=== PATIENT | male | born 1960 ===

== ENCOUNTER 2016-10-10 10:27 | Emergency (ER) | payer OTHER ==
[2016-10-10 10:39] VITALS: TEMP 98; O2SAT 97; BMI 37.7
--- NOTE | 2016-10-10 11:22 | ED PDOC ---
HPI: General Adult Time Seen by Provider: 10/10/16 10:41 Chief Complaint (Nursing): Weakness/Neurological Deficit Chief Complaint (Provider): Left upper arm numbness History Per: Patient History/Exam Limitations: no limitations Onset/Duration Of Symptoms: Days (x1) Current Symptoms Are (Timing): Still Present Severity: Mild Additional Complaint(s): Patient is a 56 year old male presenting to the ED complaining of numbness and tingling to the left upper arm and left shoulder since yesterday. Patient also complains of radiating numbness and tingling to the left side of his chest. Denies chest pain, shortness of breath, dizziness, headache, leg swelling, slurred speech, or pain. PMD: Dr. Zaragoza Past Medical History Reviewed: Historical Data, Nursing Documentation, Vital Signs Vital Signs: Last Vital Signs Temp 98 F 10/10/16 10:39 Pulse 68 10/10/16 13:00 Resp 14 10/10/16 13:00 BP 123/71 10/10/16 13:00 Pulse Ox 97 10/10/16 13:00 - Medical History PMH: Asthma, COPD Denies: Chronic Kidney Disease - Family History Family History: States: No Known Family Hx - Home Medications Home Medications: Ambulatory Orders Medication Instructions Recorded Primidone [Mysoline] 25 mg PO DAILY 07/12/16 Oseltamivir [Tamiflu] 75 mg PO BID #10 cap 08/02/16 Promethazine/Codeine 5 ml PO Q8 #60 ml 08/02/16 [Codeine/Promethazine 10 MG/5 Ml-6.25 MG/5 Ml] - Allergies Allergies/Adverse Reactions: Allergies Allergy/AdvReac Type Severity Reaction Status Date / Time aspirin Allergy DIARRHEA Verified 07/12/16 06:38 seafood Allergy ANAPHYLAXIS Uncoded 07/13/16 10:01 Review of Systems ROS Statement: Except As Marked, All Systems Reviewed And Found Negative Cardiovascular: Positive for: Other (left chest numbness and tingling). Negative for: Chest Pain Respiratory: Negative for: Shortness of Breath Musculoskeletal: Positive for: Shoulder Pain (left shoulder numbness and tingling), Other (left arm numbness and tingling). Negative for: Leg Pain Neurological: Negative for: Headache, Dizziness Physical Exam - Reviewed Nursing Documentation Reviewed: Yes Vital Signs Reviewed: Yes - Physical Exam Appears: Positive for: Well, Non-toxic, No Acute Distress Head Exam: Positive for: ATRAUMATIC, NORMAL INSPECTION, NORMOCEPHALIC Skin: Positive for: Normal Color, Warm, DRY Eye Exam: Positive for: EOMI, Normal appearance, PERRL Cardiovascular/Chest: Positive for: Regular Rate, Rhythm. Negative for: Gallop , Murmur Respiratory: Positive for: Normal Breath Sounds. Negative for: Accessory Muscle Use, Rhonchi, Respiratory Distress Pulses-Carotid (L): 2+ Extremity: Positive for: Normal ROM, Other (sensation intact) Neurologic/Psych: Positive for: Alert, Oriented - Laboratory Results Result Diagrams: 10/10/16 11:15 10/10/16 11:15 - ECG ECG: Positive for: Interpreted By Me, Viewed By Me ECG Rhythm: Positive for: Normal QRS, Normal ST Segment, Sinus Rhythm. Negative for: ST/T Changes Rate: 67 O2 Sat by Pulse Oximetry: 97 (RA) Pulse Ox Interpretation: Normal - CT Scan/US CT head Other Rad Studies (CT/US): Read By Radiologist, Radiology Report Reviewed Other Rad Interpretation: no acute findings Medical Decision Making Medical Decision Making: Time: Impression: I- Left arm paresthesia & left chest paresthesia DDx: Atypical Acute Coronary Syndrome v ACS Plan: CT Head EKG BMP Troponin CBC Scribe Attestation: Documented by Rehana Goodrich acting as a scribe for Teresa Medina MD. Scribe Attestation: All medical record entries made by the Scribe were at my direction and personally dictated by me. I have reviewed the chart and agree that the record accurately reflects my personal performance of the history, physical exam, medical decision making, and the department course for this patient. I have also personally directed, reviewed, and agree with the discharge instructions and disposition. Disposition - Clinical Impression Clinical Impression: Arm paresthesia, left - Patient ED Disposition Is Patient to be Admitted: No Doctor Will See Patient In The: Office Counseled Patient/Family Regarding: Studies Performed, Diagnosis, Need For Followup - Disposition Referrals: Siddhartha Zaraogza MD [Staff Provider] - Disposition: Routine/Home Disposition Time: 13:52 Condition: GOOD Additional Instructions: Follow up with your PCP in 2-3 days. Return for worsening. Instructions: Paresthesia (ED)
[2016-10-10 11:30] LABS: BASO # 0.1 K/uL (0.0-0.2); EOS # 0.2 K/uL (0.0-0.7); EOS % 3.4 % (0.0-4.0); HEMATOCRIT 38.8 % (35.0-51.0); LYMPH # 2.2 K/uL (1.0-4.3); LYMPH % 32.8 % (20.0-40.0); MEAN CELL VOLUME 76.6 fl (80.0-94.0); MEAN CORPUSCULAR HEMOGLOBIN 24.8 pg (27.0-31.0); MEAN CORPUSCULAR HGB CONC 32.4 g/dL (33.0-37.0); MEAN PLATELET VOLUME 7.2 fl (7.2-11.7); MONO # 0.6 K/uL (0.0-0.8); MONO % 8.4 % (0.0-10.0); NEUT # 3.6 K/uL (1.8-7.0); NEUT % 54.4 % (50.0-75.0); RED CELL DISTRIBUTION WIDTH 16.5 % (11.5-14.5); WHITE BLOOD COUNT 6.6 K/uL (4.8-10.8)
[2016-10-10 11:48] LABS: BLOOD UREA NITROGEN 20 mg/dl (9-20); CALCIUM 9.5 mg/dL (8.4-10.2); CARBON DIOXIDE 27 mmol/L (22-30); CHLORIDE 106 mmol/L (98-107); GFR AFRICAN-AMERICAN > 60; GLUCOSE,RANDOM 90 mg/dL (75-110); POTASSIUM 4.5 MMOL/L (3.6-5.0); SODIUM 145 mmol/l (132-148)
--- NOTE | 2016-10-10 11:49 | CT ---
PROCEDURE: CT HEAD WITHOUT CONTRAST. HISTORY: left arm numbness COMPARISON: Brain MRI without IV contrast performed 06/28/16 TECHNIQUE: Axial computed tomography images were obtained through the head/brain without intravenous contrast. Radiation dose: Total exam DLP = 892.21 mGy-cm. FINDINGS: HEMORRHAGE: No intracranial hemorrhage. BRAIN: No mass effect or edema. The yi-white matter differentiation appears intact. VENTRICLES: No hydrocephalus. CALVARIUM: Unremarkable. PARANASAL SINUSES: Mild mucosal thickening of the right maxillary sinus with small fluid. The remainder the visualized paranasal sinuses appear clear. MASTOID AIR CELLS: Unremarkable as visualized. No inflammatory changes. OTHER FINDINGS: None. IMPRESSION: No acute intracranial pathology identified. Please note that MRI with diffusion imaging is more sensitive in the detection of acute ischemic event. Mild mucosal thickening of the right maxillary sinus with small fluid. Correlate clinically for sinusitis.
[2016-10-10 13:01] VITALS: BP 123/71; RESP 14
[2016-10-10 13:51] VITALS: PULSE 67
--- NOTE | 2016-10-11 07:47 | CARD ---
APPROVED REPORT EKG Measurement Heart [id number] <Conclusion> Normal sinus rhythm Left anterior fascicular block Abnormal ECG
== END 2016-10-10 14:12 | disposition home or self-care (01) ==
LOC: H.ER 10:27
DX: R20.0 Anesthesia of skin (principal); J45.909 Unspecified asthma, uncomplicated; J44.9 Chronic obstructive pulmonary disease, unspecified

== ENCOUNTER 2017-05-04 08:49 | Emergency (ER) | payer OTHER ==
[2017-05-04 08:54] VITALS: BP 132/90; PULSE 66; RESP 20; TEMP 98.4; O2SAT 99
[2017-05-04 08:55] VITALS: BMI 36.6
[2017-05-04] MEDS ORDERED: Emtricitabine-Tenofovir 200 mg-300 mg Tab PO STA (10:19)
--- NOTE | 2017-05-04 10:24 | ED PDOC ---
HPI: Wound Care - HPI Time Seen by Provider: 05/04/17 09:01 Chief Complaint (Nursing): Needle Stick Chief Complaint (Provider): Prick to Fourth Digit on Right Hand History Per: Patient Exam Limitations: no limitations Current Symptoms Are (Timing): Still Present Additional Complaint(s): Gen Mustafa is a 56 year old male presenting to the ED for an evaluation after being struck by a prick to his fourth digit on his right hand occurring prior to arrival. 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 The patient reports a little bit of bleeding to the tip of his finger, but denies seeing any sharp objects or needles. He reports attempting to squeeze out as much blood as possible upon seeing the injury. The patient denies any pain, discomfort, redness, allergies, or any other medical problems. PMD: Siddhartha Zaragoza MD Past Medical History Reviewed: Historical Data, Nursing Documentation, Vital Signs Vital Signs: Last Vital Signs Temp 98.4 F 05/04/17 08:54 Pulse 66 05/04/17 08:54 Resp 20 05/04/17 08:54 BP 132/90 05/04/17 08:54 Pulse Ox 99 05/04/17 08:54 - Medical History PMH: Asthma, COPD Denies: Chronic Kidney Disease - Family History Family History: States: Unknown Family Hx - Social History Current smoker - smoking cessation education provided: Yes (cigars) Alcohol: Other Drugs: Denies - Home Medications Home Medications: Ambulatory Orders Medication Instructions Recorded Primidone [Mysoline] 25 mg PO DAILY 07/12/16 Oseltamivir [Tamiflu] 75 mg PO BID #10 cap 08/02/16 Promethazine/Codeine 5 ml PO Q8 #60 ml 08/02/16 [Codeine/Promethazine 10 MG/5 Ml-6.25 MG/5 Ml] Dolutegravir Sodium [Tivicay] 1 tab PO DAILY #4 tab 05/04/17 Emtricitabine/Tenofovir (Tdf) 1 each PO DAILY #4 tablet 05/04/17 [Truvada 100 mg-150 mg Tablet] - Allergies Allergies/Adverse Reactions: Allergies Allergy/AdvReac Type Severity Reaction Status Date / Time aspirin Allergy DIARRHEA Verified 05/04/17 09:06 seafood Allergy ANAPHYLAXIS Uncoded 07/13/16 10:01 Review of Systems ROS Statement: Except As Marked, All Systems Reviewed And Found Negative Musculoskeletal: Positive for: Other (prick to right fourth digit ). Negative for: Hand Pain (no right hand pain or discomfort) Physical Exam - Reviewed Nursing Documentation Reviewed: Yes Vital Signs Reviewed: Yes - Physical Exam Appears: Positive for: Non-toxic, No Acute Distress Head Exam: Positive for: ATRAUMATIC, NORMOCEPHALIC Eye Exam: Positive for: EOMI Neck: Positive for: Normal, Supple Cardiovascular/Chest: Positive for: Regular Rate, Rhythm Respiratory: Negative for: Respiratory Distress Extremity: Positive for: Other (superficial cut to tip of distal tip on 4th finger of right hand with a small collection of blood underneath skin) Neurologic/Psych: Positive for: Alert, Oriented (x3) - ECG O2 Sat by Pulse Oximetry: 99 (RA) Pulse Ox Interpretation: Normal Medical Decision Making Medical Decision Making: Time: 09:01 Impression: Prick to 4th digit on right hand Plan: * Tivicay 50 mg PO * Truvada 200 mg-300 mg 1 tab PO * Reevaluation Spoke to Dr. Ann. Reviewed situation and recommends testing as per protocol for post exposure for prophylaxis and start on medication for prophylaxis. Scribe Attestation: Documented by Layne Oconnor, acting as a scribe for Zuleika Looney MD. Provider Scribe Attestation: All medical record entries made by the Scribe were at my direction and personally dictated by me. I have reviewed the chart and agree that the record accurately reflects my personal performance of the history, physical exam, medical decision making, and the department course for this patient. I have also personally directed, reviewed, and agree with the discharge instructions and disposition. Disposition - Clinical Impression Clinical Impression: Needle exposure - Patient ED Disposition Is Patient to be Admitted: No Doctor Will See Patient In The: Office Counseled Patient/Family Regarding: Diagnosis, Need For Followup, Rx Given - Disposition Disposition: Routine/Home Disposition Time: 11:25 Condition: STABLE Additional Instructions: Followup with Employee [facility] Prescriptions: Dolutegravir Sodium [Tivicay] 1 tab PO DAILY #4 tab Emtricitabine/Tenofovir (Tdf) [Truvada 100 mg-150 mg Tablet] 1 each PO DAILY #4 tablet Instructions: Needle Stick Injuries (ED) Forms: [employer] (H[place] Konger) - POA Present On Arrival: Falls Or Trauma
[2017-05-05] MEDS ORDERED: Emtricitabine-Tenofovir 200 mg-300 mg Tab PO SCH (09:00)
== END 2017-05-04 11:33 | disposition home or self-care (01) ==
LOC: H.ER 08:49
DX: T14.8XXA Other injury of unspecified body region, initial encounter (principal); W46.1XXA Contact with contaminated hypodermic needle, initial encounter; Y92.238 Other place in hospital as the place of occurrence of the external cause

== ENCOUNTER 2017-08-23 09:25 | Emergency (ER) | payer OTHER ==
[2017-08-23 09:30] VITALS: BP 135/76; PULSE 73; TEMP 97
[2017-08-23 09:31] VITALS: BMI 37.3
[2017-08-23 10:01] VITALS: RESP 18; O2SAT 98
--- NOTE | 2017-08-23 11:07 | ED PDOC ---
Lower Extremity Pain/Injury Chief Complaint (Nursing): Lower Extremity Problem/Injury Chief Complaint (Provider): Lower extremity problem History Per: Patient History/Exam Limitations: no limitations Onset/Duration Of Symptoms: Days (x5 years), Worse Since (yesterday) Current Symptoms Are (Timing): Still Present Additional Complaint(s): Gen Mustafa is a 57 year old male, with a past medical history of asthma and DVT in right leg, who presents to the emergency department complaining of b/l ankle pain, chronic for x5 years but worst since yesterday. Patient reports the left ankle pain is worst than the right. On the left ankle patient points to the achilles area, and on the right ankle to the lateral posterior malleolus. Patient has trouble walking and describes the pain as aching with swelling. He denies any other medical complaints. PMD: Siddhartha Zaragoza I Of note: He is currently seeing a neurologist for right hand tremors. Past Medical History Reviewed: Historical Data, Nursing Documentation, Vital Signs Vital Signs: Last Vital Signs Temp 97 F L 08/23/17 09:59 Pulse 73 08/23/17 09:59 Resp 18 08/23/17 09:59 BP 135/76 08/23/17 09:59 Pulse Ox 98 08/23/17 09:59 - Medical History PMH: Asthma, COPD, Deep Vein Thrombosis (right leg) Denies: Chronic Kidney Disease - Surgical History Surgical History: No Surg Hx - Family History Family History: States: Unknown Family Hx - Social History Current smoker - smoking cessation education provided: Yes (Cigar) Alcohol: Social Drugs: Denies - Home Medications Home Medications: Ambulatory Orders Medication Instructions Recorded Primidone [Mysoline] 25 mg PO DAILY 07/12/16 Oseltamivir [Tamiflu] 75 mg PO BID #10 cap 08/02/16 Promethazine/Codeine 5 ml PO Q8 #60 ml 08/02/16 [Codeine/Promethazine 10 MG/5 Ml-6.25 MG/5 Ml] Dolutegravir Sodium [Tivicay] 1 tab PO DAILY #4 tab 05/04/17 Emtricitabine/Tenofovir (Tdf) 1 each PO DAILY #4 tablet 05/04/17 [Truvada 100 mg-150 mg Tablet] Acetaminophen [Tylenol 325mg tab] 650 mg PO Q4 #60 tab 08/23/17 Cyclobenzaprine [Cyclobenzaprine 10 mg PO Q8 #20 tab 08/23/17 HCl] - Allergies Allergies/Adverse Reactions: Allergies Allergy/AdvReac Type Severity Reaction Status Date / Time aspirin Allergy DIARRHEA Verified 05/04/17 09:06 seafood Allergy ANAPHYLAXIS Uncoded 07/13/16 10:01 Review of Systems ROS Statement: Except As Marked, All Systems Reviewed And Found Negative Musculoskeletal: Positive for: Foot Pain (b/l ankle pain w/ swelling) Physical Exam - Reviewed Nursing Documentation Reviewed: Yes Vital Signs Reviewed: Yes - Physical Exam Appears: Positive for: Non-toxic Head Exam: Positive for: ATRAUMATIC, NORMAL INSPECTION, NORMOCEPHALIC Skin: Positive for: Normal Color, Warm, Dry Eye Exam: Positive for: Normal appearance, EOMI, PERRL Neck: Positive for: Painless ROM, Supple Cardiovascular/Chest: Positive for: Regular Rate, Rhythm. Negative for: Murmur Respiratory: Positive for: Normal Breath Sounds. Negative for: Respiratory Distress Gastrointestinal/Abdominal: Positive for: Normal Exam, Soft. Negative for: Tenderness, Guarding, Rebound Extremity: Positive for: Normal ROM (b/l ankles. Full strength ), Tenderness ( left ankle achilles. Right ankle lateral posterior malleolus. ). Negative for: Deformity Neurologic/Psych: Positive for: Alert, Oriented - ECG O2 Sat by Pulse Oximetry: 98 (RA) Pulse Ox Interpretation: Normal Medical Decision Making Medical Decision Making: Initial Impression: Tendonitis, arthritis. Rule out DVT. Initial Plan: --Flexeril 10 mg PO --Tylenol 325mg tab 975 mg PO --Duplex Lower Extrem Vein Bilat [US] --reevaluation --Ultrasound was negative. Pt will be discharged home. Pt states motrin makes him have reflux, will prescribe Tylenol and Flexeril. 12:27 --Upon provider evaluation patient is medically stable, and requires no further treatment in the ED at this time. Patient will be discharged home. Counseling was provided and all questions were answered regarding diagnosis and need for follow up. There is agreement to discharge plan. Return if symptoms persist or worsen. Scribe Attestation: Documented by Gen Ward, acting as a scribe for Tawanda Harvey MD Provider Scribe Attestation: All medical record entries made by the Scribe were at my direction and personally dictated by me. I have reviewed the chart and agree that the record accurately reflects my personal performance of the history, physical exam, medical decision making, and the department course for this patient. I have also personally directed, reviewed, and agree with the discharge instructions and disposition. Disposition - Clinical Impression Clinical Impression: Achilles tendinitis, Arthritis - Patient ED Disposition Is Patient to be Admitted: No - Disposition Referrals: Siddhartha Zaragoza MD [Staff Provider] - Disposition: Routine/Home Disposition Time: 12:27 Condition: IMPROVED Additional Instructions: Mr Mustafa, thank you for letting us take care of you today. Your provider was Dr. Harvey. You were treated for Achilles Tendonitis, Arthritis. The emergency medical care you received today was directed at your acute symptoms. If you were prescribed any medication, please fill it and take as directed. It may take several days for your symptoms to resolve. Return to the Emergency Department if your symptoms worsen, do not improve, or if you have any other problems. Please contact your doctor or call one of the physicians/clinics you have been referred to that are listed on the Patient Visit Information form that is included in your discharge packet. Bring any paperwork you were given at discharge with you along with any medications you are taking to your follow up visit. Our treatment cannot replace ongoing medical care by a primary care provider (PCP) outside of the emergency department. Thank you for allowing the [email or web address] team to be part of your care today. If you had an X-Ray or CT scan: A Radiologist will review the ED reading if any change in treatment is needed we will contact you. If you had a blood, urine, or wound culture: It will take several days for the results, if any change in treatment is needed we will contact you. If you had an STI test: It will take 48 hours for the results. Please call after 1 week if you have not heard back. Prescriptions: Acetaminophen [Tylenol 325mg tab] 650 mg PO Q4 #60 tab Cyclobenzaprine [Cyclobenzaprine HCl] 10 mg PO Q8 #20 tab Instructions: Achilles Tendinitis (ED) Forms: [facility] [facility] ([place]ayan), [facility] ED School/Work Excuse
--- NOTE | 2017-08-23 13:23 | US ---
PROCEDURE: Bilateral lower extremity venous duplex Doppler. HISTORY: b/l ankle pain/swelling r/o dvt COMPARISON: None available. TECHNIQUE: Bilateral common femoral, superficial femoral, popliteal and posterior tibial veins were evaluated. Flow was assessed with color Doppler, compressibility, assessment of phasic flow and augmentation response. FINDINGS: COMMON FEMORAL VEIN: Right CFV: Unremarkable. Left CFV: Duplicated vein. Unremarkable. SUPERFICIAL FEMORAL VEIN: Right SFV: Unremarkable. Left SFV: Duplicated vein. Unremarkable. POPLITEAL VEIN: Right Popliteal: Unremarkable. Left Popliteal: Unremarkable. POSTERIOR TIBIAL VEIN: Right PTV: Unremarkable. Left PTV: Unremarkable. OTHER FINDINGS: None. IMPRESSION: No evidence of deep venous thrombosis.
== END 2017-08-23 12:58 | disposition home or self-care (01) ==
LOC: H.ER 09:25
DX: M76.62 Achilles tendinitis, left leg (principal); M76.61 Achilles tendinitis, right leg; J44.9 Chronic obstructive pulmonary disease, unspecified; K21.9 Gastro-esophageal reflux disease without esophagitis; Z86.718 Personal history of other venous thrombosis and embolism

== ENCOUNTER 2017-10-18 10:33 | Emergency (ER) | payer OTHER ==
[2017-10-18 10:34] VITALS: BMI 37.3
--- NOTE | 2017-10-18 11:42 | ED PDOC ---
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 C/o pain to the proximal dorsal elbow into the olecranon and c/o pain with extension of arm especially. Denies hand/wrist or shoulder pain. Denies other injury or fall. Past Medical History Reviewed: Historical Data, Nursing Documentation, Vital Signs Vital Signs: Last Vital Signs Temp 97.9 F 10/18/17 11:04 Pulse 69 10/18/17 11:04 Resp 18 10/18/17 11:04 BP 133/79 10/18/17 11:04 Pulse Ox 99 10/18/17 11:04 - Medical History PMH: Asthma, COPD, Deep Vein Thrombosis (right leg) Denies: Chronic Kidney Disease - Family History Family History: States: Unknown Family Hx - Home Medications Home Medications: Ambulatory Orders Medication Instructions Recorded Primidone [Mysoline] 25 mg PO DAILY 07/12/16 Oseltamivir [Tamiflu] 75 mg PO BID #10 cap 08/02/16 Promethazine/Codeine 5 ml PO Q8 #60 ml 08/02/16 [Codeine/Promethazine 10 MG/5 Ml-6.25 MG/5 Ml] Dolutegravir Sodium [Tivicay] 1 tab PO DAILY #4 tab 05/04/17 Emtricitabine/Tenofovir (Tdf) 1 each PO DAILY #4 tablet 05/04/17 [Truvada 100 mg-150 mg Tablet] Acetaminophen [Tylenol 325mg tab] 650 mg PO Q4 #60 tab 08/23/17 Cyclobenzaprine [Cyclobenzaprine 10 mg PO Q8 #20 tab 08/23/17 HCl] oxyCODONE/Acetaminophen [Percocet 1 ea PO Q6 PRN #6 tab 10/18/17 5/325 mg Tab] traMADol [Ultram] 50 mg PO TID PRN #12 tab 10/18/17 - Allergies Allergies/Adverse Reactions: Allergies Allergy/AdvReac Type Severity Reaction Status Date / Time aspirin Allergy DIARRHEA Verified 05/04/17 09:06 seafood Allergy ANAPHYLAXIS Uncoded 07/13/16 10:01 Review of Systems Cardiovascular: Negative for: Chest Pain Gastrointestinal: Negative for: Abdominal Pain Musculoskeletal: Positive for: Arm Pain. Negative for: Neck Pain, Shoulder Pain , Back Pain, Hand Pain, Leg Pain Neurological: Negative for: Weakness, Numbness, Headache Physical Exam - Reviewed Nursing Documentation Reviewed: Yes Vital Signs Reviewed: Yes - Physical Exam Appears: Positive for: Well, Non-toxic Head Exam: Positive for: ATRAUMATIC Skin: Positive for: Normal Color Cardiovascular/Chest: Negative for: Tachycardia Respiratory: Negative for: Respiratory Distress Extremity: Positive for: Tenderness (R elbow triceps insertion/olecranon and proximal biceps). Negative for: Normal ROM (mild limitation R elbow in extension), Deformity - ECG O2 Sat by Pulse Oximetry: 99 Medical Decision Making Medical Decision Making: XRay ?fracture epicondyle D/w radiologist Dr Isabel who rec MRI elbow MRI elbow performed, films reviewed by Dr Bustillo who recommended posterior splint and followup in office. MR result later d/w Dr Baez radiologist who does not believe fracture present based on MR films but recommending CT elbow for definitive images. Patient called to inform of official MRI result. Disposition - Clinical Impression Clinical Impression: Elbow injury - Patient ED Disposition Is Patient to be Admitted: No Counseled Patient/Family Regarding: Studies Performed, Diagnosis, Need For Followup, Rx Given - Disposition Referrals: Tristan Bustillo III, MD [Staff Provider] - Disposition: Routine/Home Disposition Time: 14:30 Condition: STABLE Additional Instructions: Wear splint at all times. Followup with Dr Bustillo for definitive care. Prescriptions: oxyCODONE/Acetaminophen [Percocet 5/325 mg Tab] 1 ea PO Q6 PRN #6 tab PRN Reason: Pain, Severe (8-10) traMADol [Ultram] 50 mg PO TID PRN #12 tab PRN Reason: Pain, Moderate (4-7) Instructions: Elbow Fracture (DC), Elbow Sprain (DC) Forms: [employer] (Luxembourgish)
--- NOTE | 2017-10-18 12:19 | RAD ---
PROCEDURE: Radiographs of the right elbow. HISTORY: Right arm pain/trauma COMPARISON: No prior. FINDINGS: BONES: Normal. No fracture. JOINTS: There is mild degenerative osteoarthrosis with reduced joint spaces and marginal osteophytes. SOFT TISSUES: Normal. JOINT EFFUSION: None. OTHER FINDINGS: None. IMPRESSION: No acute fracture or dislocation. Mild degenerative osteoarthrosis.
--- NOTE | 2017-10-18 12:20 | RAD ---
PROCEDURE: Radiographs of the right humerus. HISTORY: Right arm pain COMPARISON: None. FINDINGS: BONES: There is diffuse bone demineralization. There is no acute fracture or bone destruction. SOFT TISSUES: Normal. OTHER FINDINGS: None. IMPRESSION: No acute fracture or dislocation.
[2017-10-18 12:50] VITALS: RESP 18; TEMP 97.9
[2017-10-18 15:15] VITALS: BP 110/71; PULSE 71
--- NOTE | 2017-10-18 15:27 | MRI ---
MRI right elbow History: Elbow pain. Comparison: X-ray dated 10/18/2017 Technique: Multi-echo multiplanar sequences were performed through the right elbow without the use of intravenous contrast. Findings: Large elbow joint effusion with associated synovial debris and hypertrophy. This is of uncertain clinical etiology and may be the sequelae of posttraumatic changes however underlying inflammatory and or infectious changes cannot be excluded. Clinical correlation. Lobulated fluid intensity signal focus/collection measuring 1.1 x 1.0 x 1.9 centimeters seen adjacent to the ulnar aspect of the proximal ulna which may represent a multiloculated ganglia versus synovial cyst versus additional etiology. Biceps and brachialis tendon insertions appear preserved. Triceps tendon insertion appears preserved. Fraying with increased signal seen at the proximal attachments of the radial collateral and lateral ulnar collateral ligament suggestive for partial tearing versus moderate grade sprains. Common extensor tendon appears preserved. Fraying with increased signal seen within the proximal attachment of the ulnar collateral ligament suggestive for high-grade strain and or partial tearing. In addition, there is increased signal seen within the proximal attachment of the common flexor tendon extending to the myotendinous junction suggestive for a moderate medial epicondylitis. Prominent degenerative changes at the elbow joint space with prominent bony hypertrophy and spurring of the coronoid process. Productive change with osteophytosis noted at the level the radial head. Heterogeneity of the visualized marrow with patchy decreased T1 signal suggestive for hematopoietic marrow reconversion. Question mild reactive edema seen at the level of the radial head extending into the radial neck. These findings are nonspecific however some mild bone bruising and or mild subchondral osseous injury at this level cannot entirely be excluded. Additional etiologies not excluded. Clinical correlation. Impression: 1. Large elbow joint effusion with associated synovial debris and hypertrophy. This is of uncertain clinical etiology and may be the sequelae of posttraumatic changes however underlying inflammatory and or infectious changes cannot be excluded. Clinical correlation. 2. Lobulated fluid intensity signal focus/collection measuring 1.1 x 1.0 x 1.9 centimeters seen adjacent to the ulnar aspect of the proximal ulna which may represent a multiloculated ganglia versus synovial cyst versus additional etiology. 3. Fraying with increased signal seen at the proximal attachments of the radial collateral and lateral ulnar collateral ligament suggestive for partial tearing versus moderate grade sprains. 4. Fraying with increased signal seen within the proximal attachment of the ulnar collateral ligament suggestive for high-grade strain and or partial tearing. In addition, there is increased signal seen within the proximal attachment of the common flexor tendon extending to the myotendinous junction suggestive for a moderate medial epicondylitis. 5. Prominent degenerative changes at the elbow joint space with prominent bony hypertrophy and spurring of the coronoid process. Productive change with osteophytosis noted at the level the radial head. 6. Question mild reactive edema seen at the level of the radial head extending into the radial neck. These findings are nonspecific however some mild bone bruising and or mild subchondral osseous injury at this level cannot entirely be excluded. Additional etiologies not excluded. Clinical correlation.
[2017-10-24 16:19] VITALS: O2SAT 99
== END 2017-10-18 15:16 | disposition home or self-care (01) ==
LOC: H.ER 10:33
DX: S59.901A Unspecified injury of right elbow, initial encounter (principal); X50.0XXA Overexertion from strenuous movement or load, initial encounter; Y92.9 Unspecified place or not applicable; J44.9 Chronic obstructive pulmonary disease, unspecified; Z86.718 Personal history of other venous thrombosis and embolism

== ENCOUNTER 2018-02-07 14:50 | Emergency (ER) | payer OTHER ==
[2018-02-07 14:50] VITALS: BMI 37.3
[2018-02-07] MEDS ORDERED: Sodium Chloride 0.9% 1,000 ML IV STA (15:09)
--- NOTE | 2018-02-07 15:12 | ED PDOC ---
HPI: Abdomen Time Seen by Provider: 02/07/18 15:05 Chief Complaint (Nursing): Abdominal Pain History Per: Patient Onset/Duration Of Symptoms: Days (1) Current Symptoms Are (Timing): Better Severity: Mild Pain Scale Rating Of: 3 Location Of Pain/Discomfort: Epigastric Quality Of Discomfort: Unable To Describe Associated Symptoms: Nausea, Vomiting. denies: Fever, Diarrhea Exacerbating Factors: None Alleviating Factors: None Additional Complaint(s): Epigastric pain assoc with vomiting blood x 1 day. Denies diarrhea or dark colored stool. Denies fever. Has been taking Naprosyn. Past Medical History Vital Signs: Last Vital Signs Temp 98.3 F 02/07/18 14:53 Pulse 74 02/07/18 14:53 Resp 18 02/07/18 14:53 BP 134/84 02/07/18 14:53 Pulse Ox 99 02/07/18 15:12 - Medical History PMH: Asthma, COPD, Deep Vein Thrombosis (right leg) Denies: Chronic Kidney Disease - Family History Family History: States: Unknown Family Hx - Home Medications Home Medications: Ambulatory Orders Medication Instructions Recorded Primidone [Mysoline] 25 mg PO DAILY 07/12/16 Oseltamivir [Tamiflu] 75 mg PO BID #10 cap 08/02/16 Promethazine/Codeine 5 ml PO Q8 #60 ml 08/02/16 [Codeine/Promethazine 10 MG/5 Ml-6.25 MG/5 Ml] Dolutegravir Sodium [Tivicay] 1 tab PO DAILY #4 tab 05/04/17 Emtricitabine/Tenofovir (Tdf) 1 each PO DAILY #4 tablet 05/04/17 [Truvada 100 mg-150 mg Tablet] Acetaminophen [Tylenol 325mg tab] 650 mg PO Q4 #60 tab 08/23/17 Cyclobenzaprine [Cyclobenzaprine 10 mg PO Q8 #20 tab 08/23/17 HCl] oxyCODONE/Acetaminophen [Percocet 1 ea PO Q6 PRN #6 tab 10/18/17 5/325 mg Tab] traMADol [Ultram] 50 mg PO TID PRN #12 tab 10/18/17 Pantoprazole Sodium [Protonix] 40 mg PO DAILY #30 tablet. 02/07/18 - Allergies Allergies/Adverse Reactions: Allergies Allergy/AdvReac Type Severity Reaction Status Date / Time aspirin Allergy DIARRHEA Verified 05/04/17 09:06 seafood Allergy ANAPHYLAXIS Uncoded 07/13/16 10:01 Review of Systems Constitutional: Negative for: Fever Gastrointestinal: Positive for: Nausea, Vomiting, Abdominal Pain, Hematemesis ( red) Neurological: Negative for: Dizziness Physical Exam - Physical Exam Appears: Positive for: Non-toxic, No Acute Distress Skin: Positive for: Normal Color, Warm, DRY Cardiovascular/Chest: Positive for: Regular Rate, Rhythm Respiratory: Positive for: CNT, Normal Breath Sounds Gastrointestinal/Abdominal: Positive for: Normal Exam, Bowel Sounds, Soft, Tenderness (epigastric) Neurologic/Psych: Positive for: Alert, Oriented - Laboratory Results Result Diagrams: 02/07/18 19:25 02/07/18 15:32 - ECG O2 Sat by Pulse Oximetry: 99 Disposition - Clinical Impression Clinical Impression: Gastritis - Patient ED Disposition Is Patient to be Admitted: No Counseled Patient/Family Regarding: Studies Performed, Diagnosis, Need For Followup, Rx Given - Disposition Referrals: Matias Hunter MD [Staff Provider] - Disposition: Routine/Home Disposition Time: 19:45 Condition: FAIR Prescriptions: Pantoprazole Sodium [Protonix] 40 mg PO DAILY #30 tablet. Instructions: Gastritis Forms: [employer] (E[place]an)
[2018-02-07 15:50] LABS: ALB/GLOB RATIO 1.4 (1.0-2.1); ALBUMIN 4.4 g/dL (3.5-5.0); CALCIUM 9.3 mg/dL (8.4-10.2); GFR AFRICAN-AMERICAN > 60; GFR NON-AFRICAN AMERICAN > 60
[2018-02-07 15:52] LABS: BASO # 0.1 K/uL (0.0-0.2); BASO % 0.9 % (0.0-2.0); EOS # 0.3 K/uL (0.0-0.7); EOS % 4.5 % (0.0-4.0); HEMOGLOBIN 12.9 g/dL (12.0-18.0); LYMPH # 1.6 K/uL (1.0-4.3); LYMPH % 22.6 % (20.0-40.0); MEAN CELL VOLUME 77.7 fl (80.0-94.0); MEAN CORPUSCULAR HEMOGLOBIN 25.5 pg (27.0-31.0); MEAN CORPUSCULAR HGB CONC 32.8 g/dL (33.0-37.0); MEAN PLATELET VOLUME 7.8 fl (7.2-11.7); MONO # 0.5 K/uL (0.0-0.8); NEUT # 4.7 K/uL (1.8-7.0); RBC 5.07 Mil/uL (4.40-5.90); RED CELL DISTRIBUTION WIDTH 16.7 % (11.5-14.5); WHITE BLOOD COUNT 7.2 K/uL (4.8-10.8)
[2018-02-07 15:56] LABS: ALT/SGPT 30 U/L (21-72); AST/SGOT 39 U/L (17-59); BLOOD UREA NITROGEN 18 mg/dl (9-20)
[2018-02-07 19:34] LABS: BASO # 0.1 K/uL (0.0-0.2); BASO % 0.9 % (0.0-2.0); EOS # 0.3 K/uL (0.0-0.7); EOS % 4.9 % (0.0-4.0); HEMOGLOBIN 12.5 g/dL (12.0-18.0); LYMPH % 29.6 % (20.0-40.0); MEAN CELL VOLUME 77.4 fl (80.0-94.0); MEAN CORPUSCULAR HEMOGLOBIN 25.4 pg (27.0-31.0); MEAN CORPUSCULAR HGB CONC 32.8 g/dL (33.0-37.0); MEAN PLATELET VOLUME 7.4 fl (7.2-11.7); MONO # 0.4 K/uL (0.0-0.8); MONO % 6.7 % (0.0-10.0); NEUT # 3.8 K/uL (1.8-7.0); NEUT % 57.9 % (50.0-75.0); RBC 4.9 Mil/uL (4.40-5.90); RED CELL DISTRIBUTION WIDTH 16.8 % (11.5-14.5); WHITE BLOOD COUNT 6.6 K/uL (4.8-10.8)
[2018-02-07 19:57] VITALS: BP 121/72; PULSE 76; RESP 16; TEMP 98.5; O2SAT 97
== END 2018-02-07 19:57 | disposition home or self-care (01) ==
LOC: H.ER 14:50
DX: K29.70 Gastritis, unspecified, without bleeding (principal)
CPT/HCPCS: 80053; 85025; 96374; 99284; J7030

== ENCOUNTER 2018-02-25 07:03 | Day surgery (SDC) | payer OTHER, BC ==
[2018-02-25] MEDS ORDERED: Lactated Ringer's 500 ML IV ONE (07:31)
[2018-02-25 08:26] VITALS: TEMP 96.9
[2018-02-25] MEDS ORDERED: Propofol 10 mg/ml Inj (20 ML) ONE (08:28)
[2018-02-25] MEDS ORDERED: Midazolam 2 MG/2 ML VIAL ONE (08:28)
[2018-02-25 09:14] VITALS: O2SAT 98
[2018-02-25 09:32] VITALS: BP 110/68; PULSE 59; RESP 20
== END 2018-02-25 10:06 | disposition home or self-care (01) ==
LOC: H.ENDO 07:03
PROVIDERS: ATTEND Internal Medicine Gastroenterology
DX: Z12.11 Encounter for screening for malignant neoplasm of colon (principal); J45.909 Unspecified asthma, uncomplicated; K64.8 Other hemorrhoids
CPT/HCPCS: 45378; 88305; J2250; J2704; J7120

== ENCOUNTER 2018-06-19 12:07 | Emergency (ER) | payer OTHER ==
[2018-06-19 12:07] VITALS: BMI 37.3
[2018-06-19 12:31] VITALS: BP 134/94; PULSE 71; RESP 20; TEMP 98.4; O2SAT 97
[2018-06-19] MEDS ORDERED: Tdap Vaccine 0.5 ml Vial (10-64 yrs) IM ONE ×2 (12:31→12:49)
--- NOTE | 2018-06-19 12:39 | ED PDOC ---
HPI: Skin/Bite Injury Time Seen by Provider: 06/19/18 12:30 Chief Complaint (Nursing): Abnormal Skin Integrity Chief Complaint (Provider): Left ring finger laceration History Per: Patient History/Exam Limitations: no limitations Onset/Duration Of Symptoms: Days Current Symptoms Are (Timing): Still Present Quality Of Symptoms: Painful Severity: Mild Pain Scale Rating Of: 1 Additional Complaint(s): 57 yo male comes to Er for evaluation of left 4th digit injury. Pt pinched finger in OR stretcher. Tetanus is not UTD. Pt denies pain. Small laceration, left anterior finger with small amount of bleeding. No pain. No swelling. Past Medical History Reviewed: Historical Data, Nursing Documentation, Vital Signs Vital Signs: Last Vital Signs Temp 98.4 F 06/19/18 12:28 Pulse 71 06/19/18 12:28 Resp 20 06/19/18 12:28 BP 134/94 H 06/19/18 12:28 Pulse Ox 97 06/19/18 12:28 - Medical History PMH: Asthma (LAST ATTACK YEARS AGO), COPD, Deep Vein Thrombosis (right leg) Denies: Chronic Kidney Disease - Surgical History Surgical History: Endoscopy - Family History Family History: States: Unknown Family Hx - Living Arrangements Living Arrangements: With Family - Social History Current smoker - smoking cessation education provided: No - Immunization History Hx Tetanus Toxoid Vaccination: No Hx Influenza Vaccination: No Hx Pneumococcal Vaccination: No - Home Medications Home Medications: Ambulatory Orders Medication Instructions Recorded Budesonide/Formoterol Fumarate 1 puff IH PRN PRN 02/25/18 [Symbicort] - Allergies Allergies/Adverse Reactions: Allergies Allergy/AdvReac Type Severity Reaction Status Date / Time aspirin Allergy DIARRHEA Verified 05/04/17 09:06 seafood Allergy ANAPHYLAXIS Uncoded 07/13/16 10:01 Review of Systems ROS Statement: Except As Marked, All Systems Reviewed And Found Negative Constitutional: Negative for: Fever, Chills Musculoskeletal: Positive for: Other Skin: Positive for: Other Physical Exam - Reviewed Nursing Documentation Reviewed: Yes Vital Signs Reviewed: Yes - Physical Exam Appears: Positive for: Well, Non-toxic, No Acute Distress Head Exam: Positive for: ATRAUMATIC, NORMAL INSPECTION, NORMOCEPHALIC Skin: Positive for: Warm. Negative for: Normal Color ((+) small area of ecchymosis and superficial cut, left anterior distal finger ) Eye Exam: Positive for: Normal appearance ENT: Positive for: Normal ENT Inspection Neck: Positive for: Normal Cardiovascular/Chest: Negative for: Bradycardia, Tachycardia Respiratory: Negative for: Accessory Muscle Use, Respiratory Distress Back: Positive for: Normal Inspection Extremity: Positive for: Normal ROM Neurologic/Psych: Positive for: Alert, Oriented, Gait - ECG O2 Sat by Pulse Oximetry: 97 Medical Decision Making Medical Decision Making: Wound irrigated, antibiotic ointment and dressing applied. Tetanus ordered. Disposition - Clinical Impression Clinical Impression: Laceration, Tetanus toxoid vaccination administered at current visit - Disposition Disposition: Routine/Home Disposition Time: 12:41 Condition: GOOD Instructions: Vaccines for Adults
== END 2018-06-19 13:45 | disposition home or self-care (01) ==
LOC: H.ER 12:07
DX: S61.215A Laceration without foreign body of left ring finger without damage to nail, initial encounter (principal); W23.0XXA Caught, crushed, jammed, or pinched between moving objects, initial encounter; Y99.0 Civilian activity done for income or pay

== ENCOUNTER 2018-10-31 13:31 | Emergency (ER) | payer OTHER ==
[2018-10-31 13:36] VITALS: BMI 31.1
[2018-10-31] MEDS ORDERED: Iohexol 240 (50 ml) PO ONE ×2 (13:40→16:41)
[2018-10-31] MEDS ORDERED: Sodium Chloride 0.9% 1,000 ML IV STA (13:40)
--- NOTE | 2018-10-31 13:53 | ED PDOC ---
HPI: Abdomen Time Seen by Provider: 10/31/18 13:35 Chief Complaint (Provider): Abd pain History Per: Patient History/Exam Limitations: no limitations Onset/Duration Of Symptoms: Days (2 weeks) Additional Complaint(s): Pt. with abd pain 2 weeks ago epigastric. States it started after eating and he vomited making it go away. He again had abd pain yesterday and vomited making the pain go away. Denies dysuria, chest pain, dyspnea, fever, chills. Spoke with Dr. Waller who brought pt. to the ER for evaluation. Feels similar to when he had a bowel obstruction. 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 - Family History Family History: States: Unknown Family Hx - Immunization History Hx Tetanus Toxoid Vaccination: No Hx Influenza Vaccination: No Hx Pneumococcal Vaccination: No - Home Medications Home Medications: Ambulatory Orders Medication Instructions Recorded Budesonide/Formoterol Fumarate 1 puff IH PRN PRN 02/25/18 [Symbicort] - Allergies Allergies/Adverse Reactions: Allergies Allergy/AdvReac Type Severity Reaction Status Date / Time aspirin Allergy DIARRHEA Verified 05/04/17 09:06 seafood Allergy ANAPHYLAXIS Uncoded 07/13/16 10:01 Review of Systems ROS Statement: Except As Marked, All Systems Reviewed And Found Negative Gastrointestinal: Positive for: Nausea, Vomiting, Abdominal Pain Physical Exam - Reviewed Nursing Documentation Reviewed: Yes Vital Signs Reviewed: Yes - Physical Exam Appears: Positive for: Non-toxic, No Acute Distress Head Exam: Positive for: ATRAUMATIC, NORMAL INSPECTION, NORMOCEPHALIC Skin: Positive for: Normal Color, Warm, DRY Eye Exam: Positive for: EOMI, Normal appearance, PERRL ENT: Positive for: Normal ENT Inspection Neck: Positive for: Normal, Painless ROM Cardiovascular/Chest: Positive for: Regular Rate, Rhythm Respiratory: Positive for: CNT, Normal Breath Sounds Gastrointestinal/Abdominal: Positive for: Soft, Tenderness (epigastric) Back: Positive for: Normal Inspection. Negative for: L CVA Tenderness, R CVA Tenderness Extremity: Positive for: Normal ROM. Negative for: Tenderness Neurological/Psych: Positive for: Awake, Alert, Normal Tone - Laboratory Results Result Diagrams: 10/31/18 14:00 10/31/18 14:00 - Progress ED Course And Treament: 1455: Dr. Tucker to fu on ct and labs. Disposition - Clinical Impression Clinical Impression: Abdominal pain - Patient ED Disposition Is Patient to be Admitted: Transfer of Care - Disposition Disposition Time: 14:56 Condition: STABLE Patient Signed Over To: Luis Eduardo Tucker
[2018-10-31] MEDS ORDERED: Iohexol 240 (50 ml) ONE (13:54)
[2018-10-31 14:26] LABS: BASO # 0.1 K/uL (0.0-0.2); EOS # 0.2 K/uL (0.0-0.7); EOS % 3.3 % (0.0-4.0); LYMPH # 2.1 K/uL (1.0-4.3); LYMPH % 27.3 % (20.0-40.0); MEAN CELL VOLUME 76.3 fl (80.0-94.0); MEAN CORPUSCULAR HEMOGLOBIN 24.7 pg (27.0-31.0); MEAN CORPUSCULAR HGB CONC 32.4 g/dL (33.0-37.0); MONO # 0.6 K/uL (0.0-0.8); MONO % 7.5 % (0.0-10.0); NEUT # 4.6 K/uL (1.8-7.0); NEUT % 60.9 % (50.0-75.0); PROTHROMBIN TIME 11.3 Seconds (9.8-13.1); RBC 5.26 Mil/uL (4.40-5.90); RED CELL DISTRIBUTION WIDTH 16.3 % (11.5-14.5); WHITE BLOOD COUNT 7.5 K/uL (4.8-10.8)
[2018-10-31 14:29] LABS: PARTIAL THROMBOPLASTIN TIME 31.6 Seconds (25.6-37.1)
[2018-10-31 14:37] LABS: ALB/GLOB RATIO 1.3 (1.0-2.1); ALBUMIN 4.6 g/dL (3.5-5.0); ALT/SGPT 40 U/L (21-72); AST/SGOT 28 U/L (17-59); BLOOD UREA NITROGEN 19 mg/dl (9-20); CALCIUM 9.7 mg/dL (8.4-10.2); GFR NON-AFRICAN AMERICAN > 60; LIPASE 84 U/L (23-300)
--- NOTE | 2018-10-31 15:12 | ED PDOC ---
- Laboratory Results Result Diagrams: 10/31/18 14:00 10/31/18 14:00 Lab Results: PT 11.3 Seconds (9.8-13.1) 10/31/18 14:00 INR 1.0 10/31/18 14:00 APTT 31.6 Seconds (25.6-37.1) 10/31/18 14:00 Total Bilirubin 0.7 mg/dl (0.2-1.3) 10/31/18 14:00 AST 28 U/L (17-59) 10/31/18 14:00 ALT 40 U/L (21-72) 10/31/18 14:00 Alkaline Phosphatase 66 U/L (38-126) 10/31/18 14:00 Total Protein 8.0 G/DL (6.3-8.2) 10/31/18 14:00 Albumin 4.6 g/dL (3.5-5.0) 10/31/18 14:00 Globulin 3.4 gm/dL (2.2-3.9) 10/31/18 14:00 Albumin/Globulin Ratio 1.3 (1.0-2.1) 10/31/18 14:00 Lipase 84 U/L (23-300) 10/31/18 14:00 - ECG O2 Sat by Pulse Oximetry: 97 Medical Decision Making Medical Decision Makin Patient care endorsed from Dr. Isabel to this provider pending labs and call Dr. Waller. [address] Wall[address]. [address] FINDINGS: LOWER THORAX: Small hiatal hernia again identified. LIVER: Unremarkable. No gross lesion or ductal dilatation. GALLBLADDER AND BILE DUCTS: Cholelithiasis without CT evidence of acute cholecystitis. Tiny punctate gallstones identified. PANCREAS: Unremarkable. No gross lesion or ductal dilatation. SPLEEN: Unremarkable. ADRENALS: Unremarkable. No mass. KIDNEYS AND URETERS: Unremarkable. No hydronephrosis. No solid mass. VASCULATURE: Unremarkable. No aortic aneurysm. No atherosclerotic calcification or mural plaque present. IVC filter noted. BOWEL: Redemonstration of postoperative changes related to the stomach. CT appearance suggest prior Jeanette-en-Y procedure. Mildly dilated after unchanged compared to the prior study. APPENDIX: No abnormalities to suggest acute appendicitis. No right lower quadrant inflammatory processes identified. PERITONEUM: Unremarkable. No free fluid. No free air. LYMPH NODES: Unremarkable. No enlarged lymph nodes. BLADDER: Unremarkable. REPRODUCTIVE: Unremarkable. BONES: No acute fracture. OTHER FINDINGS: None. IMPRESSION: No acute or significant findings related to/ accounting for the clinical presentation. Additional benign and/or incidental findings described above. No significant interval change compared to the prior examination(s). [address] Waller who states patient can be discharged. Pt tpolerated po, feels improved isntructed to follow up with DR malik with whom pt has followed with inthe past (GI) Scribe Attestation: Documented by Magnolia Aguilar, acting as a scribe for Luis Eduardo Tucker MD. Provider Scribe Attestation: All medical record entries made by the Scribe were at my direction and personally dictated by me. I have reviewed the chart and agree that the record accurately reflects my personal performance of the history, physical exam, medical decision making, and the department course for this patient. I have also personally directed, reviewed, and agree with the discharge instructions and disposition. Disposition Counseled Patient/Family Regarding: Studies Performed, Diagnosis, Need For Followup - Clinical Impression Clinical Impression: Abdominal pain - POA Present On Arrival: None - Disposition Disposition: Routine/Home Disposition Time: 18:33 Condition: IMPROVED Additional Instructions: follow up with dr malik of GI in 1-2 days return to the ED with any worsening or concerning symptoms Prescriptions: Famotidine [Pepcid] 20 mg PO BID PRN #10 tab PRN Reason: Heartburn Ondansetron [Zofran] 4 mg PO Q6H PRN #5 tab PRN Reason: Nausea/Vomiting Instructions: Stomach Ache and Stomach Upset Forms: 24h00 (Mohawk)
[2018-10-31] MEDS ORDERED: Iohexol 300 100 ML IJ ONE (16:41)
[2018-10-31] MEDS ORDERED: Sodium Chloride 0.9% 50 ML IV ONE (16:42)
--- NOTE | 2018-10-31 17:58 | CT ---
Date of service: 10/31/2018 PROCEDURE: CT Abdomen and Pelvis with contrast HISTORY: abd pain COMPARISON: 02/11/2010. TECHNIQUE: Intravenous contrast dose: 95 cc Omnipaque 300. Radiation dose: Total exam DLP = <inf_radiation_dlp> mGy-cm. This CT exam was performed using one or more of the following dose reduction techniques: Automated exposure control, adjustment of the mA and/or kV according to patient size, and/or use of iterative reconstruction technique. FINDINGS: LOWER THORAX: Small hiatal hernia again identified. LIVER: Unremarkable. No gross lesion or ductal dilatation. GALLBLADDER AND BILE DUCTS: Cholelithiasis without CT evidence of acute cholecystitis. Tiny punctate gallstones identified. PANCREAS: Unremarkable. No gross lesion or ductal dilatation. SPLEEN: Unremarkable. ADRENALS: Unremarkable. No mass. KIDNEYS AND URETERS: Unremarkable. No hydronephrosis. No solid mass. VASCULATURE: Unremarkable. No aortic aneurysm. No atherosclerotic calcification or mural plaque present. IVC filter noted. BOWEL: Redemonstration of postoperative changes related to the stomach. CT appearance suggest prior Jeanette-en-Y procedure. Mildly dilated after unchanged compared to the prior study. APPENDIX: No abnormalities to suggest acute appendicitis. No right lower quadrant inflammatory processes identified. PERITONEUM: Unremarkable. No free fluid. No free air. LYMPH NODES: Unremarkable. No enlarged lymph nodes. BLADDER: Unremarkable. REPRODUCTIVE: Unremarkable. BONES: No acute fracture. OTHER FINDINGS: None. IMPRESSION: No acute or significant findings related to/ accounting for the clinical presentation. Additional benign and/or incidental findings described above. No significant interval change compared to the prior examination(s).
[2018-10-31 18:56] VITALS: BP 132/69; PULSE 72; RESP 18; TEMP 99.2
[2018-10-31 20:53] VITALS: O2SAT 97
== END 2018-10-31 18:57 | disposition home or self-care (01) ==
LOC: H.ER 13:31
DX: R10.9 Unspecified abdominal pain (principal)
CPT/HCPCS: 74177; 80053; 83690; 85025; 85610; 85730; 96361; 96374; 96375; 96376; 99284; J2405; J7030; Q9966; Q9967